=== PATIENT | female | born 1950 | race Caucasian/White ===

== ENCOUNTER → 2021-01-22 02:40 | Outpatient (CLI) | payer MEDICARE, SELFPAY ==
[2021-01-22 20:22] LABS: SARS-CoV-2 RNA PCR Negative
== END ==
PROVIDERS: PCP Family Medicine; Visit Provider Internal Medicine Gastroenterology
DX: Z01.812 Encounter for preprocedural laboratory examination (principal); Z20.822 Contact with and (suspected) exposure to COVID-19
CPT/HCPCS: C9803; U0003; U0005

== ENCOUNTER 2021-01-26 00:56 | Day surgery (SDC) | payer MEDICARE, SELFPAY ==
[2021-01-13 12:26] VITALS: BMI 23.0
[2021-01-26 12:42] VITALS: BP 109/68; PULSE 107; RESP 24; TEMP 36.8; O2SAT 96; BMI 22.3
[2021-01-26 12:52] LABS: Glucose Point of Care 156 (65-105)
[2021-01-26] MEDS: LACTATED RINGERS 1,000 ML 150 ML IV CONT (12:53)
--- NOTE | 2021-01-26 13:10 | WPDANESEPPF ---
Anes - Initial Pre Proc Eval Procedure: Operation Date: 01/26/21 14:00 Proposed Procedures p Screening Colonoscopy - Isma Glover MD Date/Time: 01/26/21 13:10 Surgeon: Isma Glover MD Pre Op Diagnosis: neoplasm screening Patient Data Age: 70 Gender: F Height: 5 ft 3 in Weight: 57.2 kg Last Vital Signs Temp 98.2 F 01/26/21 12:42 Pulse 107 H 01/26/21 12:42 Resp 24 H 01/26/21 12:42 BP 109/68 01/26/21 12:42 Pulse Ox 96 01/26/21 12:42 Allergies Allergy/AdvReac Type Severity Reaction Status Date / Time de la fuente Allergy Hives Verified 01/26/21 12:41 vancomycin Allergy Hives Verified 01/26/21 12:41 Home Medications Medication Instructions Recorded Confirmed Type aspirin 81 mg PO DAILY 01/13/21 01/13/21 History biotin 5,000 mcg SUBLINGUAL DAILY 01/13/21 01/13/21 History gabapentin 1,200 mg PO DAILY 01/13/21 01/13/21 History glipizide 10 mg PO BID 01/13/21 01/13/21 History lisinopril 5 mg PO DAILY 01/13/21 01/13/21 History metformin 2 mg PO BID 01/13/21 01/13/21 History simvastatin 20 mg PO HS 01/13/21 01/13/21 History tamoxifen 20 mg PO DAILY 01/13/21 01/13/21 History umeclidinium [Incruse Ellipta] 1 inh INHALATION DAILY 01/13/21 01/13/21 History Laboratory Tests 01/26/21 12:50 POC Capillary Glucose 156 mg/dl H mg/dl (65-105) Patient hx anesthesia problems: none Family hx anesthesia problems: none PMFSH Social History Social History Smoking packs per day: 1 Smoking cigarettes per day: 20.0 Years smoked: 35 Smoking pack-years: 35.00 Smoking status: Former smoker Tobacco type: cigarettes Alcohol intake: former Living arrangements: alone Spiritual care concerns: No Anes - Eval Final PreProcedure Day of Procedure 01/26/21 13:10 Patient weight: normal Heart: regular rate and rhythm Lungs: clear to auscultation Airway: Mallampati scale class II Neurological: alert and oriented Last oral intake: >/= 8 hours ASA classification: III Emergent: no Anesthetic plan: proceed Anesthesia type and monitoring: general GIVS and standard monitoring Informed Consent: The patient's anesthetic plan and its attendant risks and benefits were discussed with the patient/family/POA. Questions were solicited and answers provided to the satisfaction of the patient/family/POA.
--- NOTE | 2021-01-26 13:51 | PM.HPGS ---
History of Present Illness History of Present Illness Consent: Risks, benefits, and alternatives have been discussed and questions answered. Patient agrees to proceed with procedure. Chief complaint: neoplasm screening Narrative: Nakia Spencer is a 70 year old female here for screening colonoscopy, last one 20 years ago Review of Systems Constitutional: Constitutional: Denies headache(s) and Denies weakness Eyes: Eyes: Denies blurry vision ENT: Reports Normal hearing present, Denies headache(s) and Denies neck pain Cardiovascular: Cardiovascular: Denies chest pain and Denies dyspnea Respiratory: Respiratory: Denies dyspnea Gastrointestinal: Gastrointestinal: Reports no additional gastrointestinal complaints Genitourinary: Genitourinary: Denies dysuria Musculoskeletal: Musculoskeletal: Denies neck pain Integumentary/Breasts: Skin/Breast: Denies dry skin Neurologic: Reports Normal hearing present, Denies headache(s) and Denies weakness Psychiatric: Psychiatric: Denies anxiety Endocrine: Endocrine: Denies change in body appearance Hematologic/Lymphatic: Hematologic/Lymphatic: Denies easy bleeding Allergic/Immunologic: Allergic/Immunologic: Denies urticaria PMFSH Past Medical History Medical History (Updated 01/26/21 @ 13:51 by Isma Glover MD) Colon cancer screening Social History Social History Smoking packs per day: 1 Smoking cigarettes per day: 20.0 Years smoked: 35 Smoking pack-years: 35.00 Smoking status: Former smoker Tobacco type: cigarettes Alcohol intake: former Living arrangements: alone Spiritual care concerns: No Meds Home Medications and Allergies Home Medications Medication Instructions Recorded Confirmed Type aspirin 81 mg PO DAILY 01/13/21 01/13/21 History biotin 5,000 mcg SUBLINGUAL DAILY 01/13/21 01/13/21 History gabapentin 1,200 mg PO DAILY 01/13/21 01/13/21 History glipizide 10 mg PO BID 01/13/21 01/13/21 History lisinopril 5 mg PO DAILY 01/13/21 01/13/21 History metformin 2 mg PO BID 01/13/21 01/13/21 History simvastatin 20 mg PO HS 01/13/21 01/13/21 History tamoxifen 20 mg PO DAILY 01/13/21 01/13/21 History umeclidinium [Incruse Ellipta] 1 inh INHALATION DAILY 01/13/21 01/13/21 History Allergies Allergy/AdvReac Type Severity Reaction Status Date / Time leisa Allergy Hives Verified 01/26/21 12:41 vancomycin Allergy Hives Verified 01/26/21 12:41 Vital Signs Vital Signs - 24 hr 01/26/21 12:42 Temperature 98.2 F Pulse Rate 107 H Respiratory Rate 24 H Blood Pressure 109/68 Pulse Oximetry 96 Exam Const: General: comfortable and no acute distress HENMT: General nose exam: Normal nares present Eyes: General: appearance normal, both eyes and all related structures Neck: Neck: no JVD Resp: Auscultation: clear to auscultation bilaterally Cardio: Rate: regular rate Rhythm: regular rhythm GI: Inspection: non-distended GI Palp: Yes Soft to palpation Skin: General skin exam: normal color Neuro: General: gait normal Speech: normal speech Extrem: General: normal to inspection Psych: Mental Status: mental status grossly normal Assessment and Plan Assessment and plan (1) Colon cancer screening: Code(s): Z12.11 - Encounter for screening for malignant neoplasm of colon Status: Acute Assessment and Plan: proceed with colonoscopy
[2021-01-26 14:13] VITALS: BP 84/83; PULSE 72; RESP 17; O2SAT 96
[2021-01-26 14:23] VITALS: BP 99/50; PULSE 83; RESP 22; O2SAT 97
[2021-01-26 14:33] VITALS: BP 106/81; PULSE 73; RESP 21; O2SAT 99
== END 2021-01-26 14:43 | disposition home or self-care (01) ==
PROVIDERS: PCP Family Medicine; Visit Provider Internal Medicine Gastroenterology
PROC: 0DJD8ZZ Inspection of Lower Intestinal Tract, Via Natural or Artificial Opening Endoscopic (ICD-10-PCS; CPT 45378; principal; 2021-01-26 14:00)
DX: Z12.11 Encounter for screening for malignant neoplasm of colon (principal); K57.30 Diverticulosis of large intestine without perforation or abscess without bleeding; K64.8 Other hemorrhoids; Z87.891 Personal history of nicotine dependence; Z79.82 Long term (current) use of aspirin; Z79.84 Long term (current) use of oral hypoglycemic drugs; Z79.810 Long term (current) use of selective estrogen receptor modulators (SERMs)
CPT/HCPCS: G0121; C9803; J2704; J7120; U0003; U0005

== ENCOUNTER → 2021-02-15 14:29 | Outpatient (CLI) | payer MEDICARE, SELFPAY ==
--- NOTE | ~2021-02-15 | MM_ITS ---
EXAMINATION: MM screening [facility] BI w marco a HISTORY: Screening mammogram TECHNIQUE: Craniocaudal and mediolateral oblique 3-D tomosynthesis images were obtained and synthetic 2-D images were generated. CAD analysis was submitted and interpreted. COMPARISON: 11/07/2018, 11/19/2017, 01/22/2017, 07/18/2016, 07/11/2016 BREAST PARENCHYMAL COMPOSITION: There are scattered areas of fibroglandular density. FINDINGS: Again noted are stable lumpectomy changes in the upper left breast. There is no evidence of suspicious mass, calcification, or architectural distortion to suggest malignancy in either breast. There has been no suspicious interval change. IMPRESSION: 1. No mammographic evidence of malignancy. 2. Recommend routine screening mammography in one year. BI-RADS Category 2: Benign finding(s). Reviewed, dictated and finalized at location A.
== END ==
PROVIDERS: PCP Family Medicine; Visit Provider Family Medicine
DX: Z12.31 Encounter for screening mammogram for malignant neoplasm of breast (principal)
CPT/HCPCS: 77063; 77067

== ENCOUNTER → 2022-06-01 10:17 | Outpatient (CLI) | payer MEDICARE, SELFPAY ==
--- NOTE | ~2022-06-01 | MM_ITS ---
EXAMINATION: MM diagnostic [facility] w [facility]co a HISTORY: History of left breast cancer status post lumpectomy and radiation therapy. TECHNIQUE: Additional 3-D tomosynthesis images of the breasts were performed and synthetic 2-D images were generated. CAD analysis was submitted and interpreted. COMPARISON: Comparison to multiple prior studies sequentially, with oldest reviewed study dated 07/18. BREAST PARENCHYMAL COMPOSITION: The breasts are heterogenously dense, which may obscure small masses FINDINGS: There are developing calcifications at the previous lumpectomy site in the left breast. Kimo e of these calcifications appear to layer suggesting benign milk of calcium. The right breast is stab le without evidence for malignancy. IMPRESSION: 1. Probable benign left breast calcifications at previous lumpectomy site. No evidence for malignancy in the right breast. 2. Recommend 6 month follow-up diagnostic left mammogram BI-RADS category 3, probably benign findings. Reviewed, dictated and finalized at location A. IMPRESSION: 1. Probable benign left breast calcifications at previous lumpectomy site. No e vidence for malignancy in the right breast. 2. Recommend 6 month follow-up diagnostic left mammogram BI-RADS category 3, probably benign findings.
== END ==
PROVIDERS: PCP Family Medicine; Visit Provider Family Medicine
DX: Z85.3 Personal history of malignant neoplasm of breast (principal); R92.8 Other abnormal and inconclusive findings on diagnostic imaging of breast
CPT/HCPCS: 77062; 77066; G0279

== ENCOUNTER → 2022-12-05 14:00 | Outpatient (CLI) | payer MEDICARE, SELFPAY ==
--- NOTE | ~2022-12-05 | MM_ITS ---
EXAMINATION: MM diagnostic [facility] LT w marco a HISTORY: History of malignant neoplasm of left breast TECHNIQUE: ML, MLO and CC 3-D tomosynthesis images of were performed and synthetic 2-D images were ge nerated. Magnification ML, MLO and CC views. CAD analysis was submitted and interpreted. COMPARISON: iagnostic bilateral mammogram 02/15/2021ilateral screening mammogram 11/07/2018 bilateral screening mammogram BREAST PARENCHYMAL COMPOSITION: There are scattered areas of fibroglandular density. FINDINGS: Multiple surgical clips are noted in the posterior upper central left breast with some asso ciated chronic asymmetric density and architectural distortion, consistent with postsurgical change. There is evidence of some fat necrosis and some associated benign calcifications Minimal additional benign calcification is noted in the left breast. No interval suspicious mass or new architectural distortion or significant new or developing density, skin thickening or retraction since prior examinations. IMPRESSION: 1. Status post left partial mastectomy for breast cancer; no evidence of malignancy or significant ne w findings since 05/2022 2. Routine annual mammographic screening is recommended BI-RADS Category 2: Benign finding(s). Reviewed, dictated and finalized at location A. SEARCH EVALUATOR IMPRESSION: 1. Status post left partial mastectomy for breast cancer; no evidence of malign carin or significant new findings since 05/2022 2. Routine annual mammographic screening is recommended BI-RADS Category 2: Benign finding(s).
== END ==
PROVIDERS: PCP Family Medicine; Visit Provider Family Medicine
DX: Z85.3 Personal history of malignant neoplasm of breast (principal)
CPT/HCPCS: 77061; 77065; G0279